=== PATIENT | female | born 2000 | race American Indian/Alaskan Native ===

== ENCOUNTER 2022-02-19 11:20 | Emergency (ER) | payer OTHER ==
[2022-02-19 11:32] VITALS: BP 109/72
--- NOTE | 2022-02-19 13:04 | Emergency Department Report ---
ED Extremity Problem HPI - General Chief complaint: Extremity Problem,Nontraumatic Stated complaint: RING STUCK ON FINGER Time Seen by Provider: 02/19/22 11:45 Source: patient Mode of arrival: Ambulatory Limitations: No Limitations - Related Data Previous Rx's Medication Instructions Recorded Last Taken Type Cyclobenzaprine [Flexeril] 10 mg PO TID PRN #30 tab 02/19/22 Unknown Rx Lidocaine [Lidoderm] 1 each TP DAILY PRN #10 patch 02/19/22 Unknown Rx Naproxen [Naprosyn] 500 mg PO BID 7 Days #14 tab 02/19/22 Unknown Rx methylPREDNISolone [Medrol 4MG 4 mg PO DAILY #1 pack 02/19/22 Unknown Rx DOSEPAK (21 tabs)] Allergies Allergy/AdvReac Type Severity Reaction Status Date / Time No Known Allergies Allergy Verified 02/19/22 11:32 ED Review of Systems ROS: Stated complaint: RING STUCK ON FINGER Other details as noted in HPI ED Past Medical Hx - Past Medical History Previous Medical History?: No - Surgical History Past Surgical History?: No - Social History Smoking Status: Never Smoker - Medications Home Medications: Home Medications Medication Instructions Recorded Confirmed Last Taken Type Cyclobenzaprine [Flexeril] 10 mg PO TID PRN #30 tab 02/19/22 Unknown Rx Lidocaine [Lidoderm] 1 each TP DAILY PRN #10 patch 02/19/22 Unknown Rx Naproxen [Naprosyn] 500 mg PO BID 7 Days #14 tab 02/19/22 Unknown Rx methylPREDNISolone [Medrol 4MG 4 mg PO DAILY #1 pack 02/19/22 Unknown Rx DOSEPAK (21 tabs)] ED Physical Exam - General Limitations: No Limitations ED Course Vital Signs 02/19/22 02/19/22 11:27 12:51 Temperature 97.8 F Pulse Rate 93 H Respiratory 14 Rate Blood Pressure 109/72 O2 Sat by Pulse 98 98 Oximetry Critical care attestation.: If time is entered above; I have spent that time in minutes in the direct care of this critically ill patient, excluding procedure time. ED Disposition Clinical Impression: Cervical radicular pain Disposition: 01 HOME / SELF CARE / HOMELESS Is pt being admited?: No Does the pt Need Aspirin: No Condition: Stable Instructions: Cervical Radiculopathy, [id number] Additional Instructions: Take medication as prescribed. Follow-up with primary care provider if no improvement or worsening symptoms. Return to the emergency department as needed. Prescriptions: Cyclobenzaprine [Flexeril] 10 mg PO TID PRN #30 tab PRN Reason: Muscle Spasm Lidocaine [Lidoderm] 1 each TP DAILY PRN #10 patch PRN Reason: Pain, Moderate (4-6) methylPREDNISolone [Medrol 4MG DOSEPAK (21 tabs)] 4 mg PO DAILY #1 pack Naproxen [Naprosyn] 500 mg PO BID 7 Days #14 tab Referrals: FABIANA CASTILLO MD [Staff Physician] - 3-5 Days GAETANO TAPIA DO [Referring] - 3-5 Days Forms: Work/School Release Form(ED) Time of Disposition: 13:04
--- NOTE | 2022-02-19 14:12 | Emergency Department Report ---
ED Extremity Problem HPI - General Chief complaint: Extremity Problem,Nontraumatic Stated complaint: RING STUCK ON FINGER Time Seen by Provider: 02/19/22 11:45 Source: patient Mode of arrival: Ambulatory Limitations: No Limitations - History of Present Illness Initial comments: 21 yof presents to ed requesting to have ring removed from left middle finger stating that she has been unable to remove it despite several attempts at home. MD Complaint: extremity pain -: hour(s) Location: left, other (middle finger. ) History of Same: No Severity scale (0 -10): 10 Quality: aching Associated Symptoms: denies other symptoms - Related Data Allergies Allergy/AdvReac Type Severity Reaction Status Date / Time No Known Allergies Allergy Verified 02/19/22 11:32 ED Review of Systems ROS: Stated complaint: RING STUCK ON FINGER Other details as noted in HPI Comment: All other systems reviewed and negative Constitutional: denies: chills, fever Eyes: denies: eye discharge, vision change ENT: denies: congestion Respiratory: denies: shortness of breath Cardiovascular: denies: chest pain, palpitations Gastrointestinal: denies: abdominal pain, nausea, vomiting Musculoskeletal: denies: back pain Neurological: denies: headache ED Past Medical Hx - Past Medical History Previous Medical History?: No - Surgical History Past Surgical History?: No - Social History Smoking Status: Never Smoker ED Physical Exam - General Limitations: No Limitations General appearance: alert, in no apparent distress - Head Head exam: Present: atraumatic, normocephalic - Eye Eye exam: Present: normal appearance. Absent: conjunctival injection - Neck Neck exam: Present: normal inspection - Respiratory Respiratory exam: Absent: respiratory distress - Cardiovascular Cardiovascular Exam: Present: regular rate - GI/Abdominal GI/Abdominal exam: Absent: distended - Extremities Exam Extremities exam: Present: normal inspection, full ROM - Expanded Upper Extremity Exam Left Hand L/R Back: 1 - Thick, silver colored ring in place and noted to be very tight with swelling, erythema, and tenderness noted. Vascular: Present: normal capillary refill, radial pulse. Absent: vascular compromise, Pallo - Back Exam Back exam: Present: normal inspection - Neurological Exam Neurological exam: Present: alert, oriented X3, normal gait - Psychiatric Psychiatric exam: Present: normal affect, normal mood - Skin Skin exam: Present: warm, dry, intact ED Course Vital Signs 02/19/22 02/19/22 11:27 12:51 Temperature 97.8 F Pulse Rate 93 H Respiratory 14 Rate Blood Pressure 109/72 O2 Sat by Pulse 98 98 Oximetry - Procedure Description Procedures done: Ring removal: ring cut off with ring cutter. Patient tolerated well. ED Medical Decision Making - Medical Decision Making 21 yof presents to ed requesting to have ring removed from left middle finger stating that she has been unable to remove it despite several attempts at home. Ring removed per my procedure note. Patient advised to follow up with pcp if worsening symptoms or return to ED. She verbalized understanding of and agreement with plan of care. Critical care attestation.: If time is entered above; I have spent that time in minutes in the direct care of this critically ill patient, excluding procedure time. ED Disposition Clinical Impression: Cervical radicular pain External constriction of finger Qualifiers: Encounter type: initial encounter Qualified Code(s): S60.449A - External constriction of unspecified finger, initial encounter Disposition: HOME / SELF CARE / HOMELESS Is pt being admited?: No Does the pt Need Aspirin: No Condition: Stable Additional Instructions: Follow-up with primary care provider if worsening symptoms. Return to the emergency department as needed. Referrals: FABIANA CASTILLO MD [Primary Care Provider] - 3-5 Days Forms: Work/School Release Form(ED)
== END 2022-02-19 14:38 | disposition home or self-care (01) ==
LOC: ED 11:20
DX: S60.443A External constriction of left middle finger, initial encounter (principal); M54.12 Radiculopathy, cervical region; W49.04XA Ring or other jewelry causing external constriction, initial encounter; Y93.89 Activity, other specified; Y92.89 Other specified places as the place of occurrence of the external cause; Y99.8 Other external cause status
CPT/HCPCS: 99282